=== PATIENT | male | born 2000 | race Asian ===

== ENCOUNTER 2020-10-04 13:14 | Emergency (ER) | payer SELFPAY ==
[2020-10-04 13:22] VITALS: BP 144/81; PULSE 81; RESP 16; TEMP 36.6; O2SAT 100
--- NOTE | 2020-10-04 13:24 | ED_ITS ---
HPI - Wound/Laceration General Chief Complaint: Wound/Laceration Stated Complaint: fall/injured hand Source: patient and RN notes reviewed Limitations: no limitations History of Present Illness HPI narrative: The patient, who is right-handed student, presents with wound check of hand injury. Patient states he slipped and fell in a garage where there was a razor blade on the ground. He complains of mild pain and swelling from a small, superficial avulsion of the left hypothenar eminence. Symptoms are mild, almost completely better with elevation or compression. He says he would like a check, as' he has no supplies at home'. Related Data Allergies Allergy/AdvReac Type Severity Reaction Status Date / Time No Known Allergies Allergy Unknown Verified 10/04/20 13:21 Review of Systems Review of Systems: Narrative: The patient has been informed that they may have pre-hypertension or Hypertension based on a BP reading in the department. I recommend that the patient call the primary care provider listed on their discharge instructions or a physician of their choice this week to arrange follow up for further evaluation of possible pre-hypertension or Hypertension General/Constitutional: No weight loss,fever Eyes: N0: Redness,discharge Ears/Nose/Throat: No: Epistaxis,ear discharge Respiratory: Denies: Hemoptysis Gastrointestinal: No Vomiting, Bleeding-rectal Skin: No Lumps, eruption Neurologic: No Focal Weakness,Sz Hematologic: Denies: Petechiae/Purpura Psychiatric: No: Suicida ideationl All Other Systems: Reviewed and Negative PMFSH Comments At time of signature, agree with nursing past medical, surgical, social and family history. There is no relevant family history pertinent to the presenting complaint Exam Narrative: Exam Narrative: General Appearance: Well appearing, , Conjunctiva clear Ears: External ear normal, Auditory canal normal Nose: Normal nose, Nares clear Mouth/Throat: Normal appearing, Supple Respiratory: Airway patent, No respiratory distress MS L Hand: Normal strength (mostly intact, unlimited flexion/extension , Tenderness (hypothenar with mild decreased ROM), no swelling , Other no snuffbox tenderness Skin: Warm, Dry, ~1x2 cm superficial, approximated avulsion at hypothenar Neurological: A&O x3, , Normal affect Course Vital Signs Vital signs: Vital Signs Temperature 97.9 F 10/04/20 13:22 Pulse Rate 81 10/04/20 13:22 Respiratory Rate 16 10/04/20 13:22 Blood Pressure 144/81 H 10/04/20 13:22 Pulse Oximetry 100 10/04/20 13:22 Temperature 97.9 F 10/04/20 13:22 Pulse Rate 81 10/04/20 13:22 Respiratory Rate 16 10/04/20 13:22 Blood Pressure 144/81 H 10/04/20 13:22 Pulse Oximetry 100 10/04/20 13:22 Discharge Plan Discharge Clinical Impression: Encounter for post-traumatic wound check, History of fall Patient Disposition: Home, Self-Care Condition: Stable Instructions: Antibiotic Form, Skin Avulsion (ED) Prescriptions: New mupirocin 2 % ointment 1 applic TOPICAL TID Qty: 30 RF: 0 cephalexin [Keflex] 500 mg capsule 500 mg PO Q12H Qty: 6 RF: 0 mupirocin 2 % ointment 1 applic TOPICAL TID Qty: 30 RF: 0 Follow-up/Referrals: PHYSICIAN,MANAGER BUSINESS PLANNING [Primary Care Provider] -
== END 2020-10-04 13:42 | disposition home or self-care (01) ==
PROVIDERS: Emergency Provider Emergency Medicine
DX: S61.402A Unspecified open wound of left hand, initial encounter (principal); W01.0XXA Fall on same level from slipping, tripping and stumbling without subsequent striking against object, initial encounter
CPT/HCPCS: 99203; G0463

== ENCOUNTER 2021-01-25 14:59 | Outpatient (CLI) | payer OTHER, SELFPAY | END 2021-01-25 15:00 | disposition home or self-care (01) | LOC: ANHCOVIDVC 14:59 | PROVIDERS: PCP Family Medicine | DX: Z23 Encounter for immunization (principal) | CPT/HCPCS: 0001A; 91300 ==

== ENCOUNTER 2021-02-15 15:00 | Outpatient (CLI) | payer OTHER, SELFPAY | END 2021-02-15 15:01 | disposition home or self-care (01) | LOC: ANHCOVIDVC 15:00 | PROVIDERS: PCP Family Medicine | DX: Z23 Encounter for immunization (principal) | CPT/HCPCS: 0002A; 91300 ==

== ENCOUNTER 2023-06-02 13:01 | Emergency (ER) | payer BC, SELFPAY ==
--- NOTE | 2023-06-02 13:05 | ED.EAR ---
HPI - Ear Problem General Chief complaint: Ear Stated complaint: EARACHE/CRACKLING NOISE Time Seen by Provider: 06/02/23 13:05 Source: patient Mode of arrival: ambulatory Limitations: no limitations History of Present Illness HPI Narrative: Tommy is a 23-year-old male patient presenting to the clinic today with complaints of earache and crackling noises in his left ear. He reports pain 3/10. No fever or chills. Symptoms have been going on for approximately 1 week. Related Data Allergies Allergy/AdvReac Type Severity Reaction Status Date / Time No Known Allergies Allergy Unknown Verified 10/04/20 13:21 Review of Systems Review of Systems: Pertinent positives per HPI. Patient denies any fever, chills, rash, headache, visual changes, dizziness, cough,sore throat, shortness of breath, chest pain, palpitations, nausea, vomiting, diarrhea, constipation, abdominal pain, or any urinary issues. PMFSH Comments At the time of my signature, I reviewed and agree with the nursing past medical, surgical, social, and family history. There is no relevant family history pertinent to the patient complaint. Exam Narrative: General: Well-developed, well nourished, in no apparent distress Head: Normocephalic, atraumatic Eyes: Pupils equally round and reactive to light bilaterally, EOM intact, sclera and conjunctive clear, no discharge, lids normal Ears: Right tMs intact and clear, left TM intact, mild bulging with fluid noted behind the TM, ear canals clear, no drainage, grossly hearing normal. Nose: Nares patent, clear discharge, no inflammation, no sinus tenderness. Mouth: Oropharynx without lesions or masses, good dentition, MMM. Neck: Supple, trachea midline, no enlargement of anterior or posterior cervical nodes, no thyroid masses or goiter palpable. Cardio: Regular rate and rhythm, s1 and s2 normal, no murmur appreciated. Resp: Clear to auscultation bilaterally anteriorly and posteriorly, no rhonchi, rales, wheezing or rubs Course Course Emergency Course: Portions of this record may have been created with voice recognition software. Level of Care: Express Care Visit Vital Signs Vital signs: Vital signs reviewed Medical Decision Making MDM Narrative Medical decision making narrative: At the time of visit patient is resting comfortably on the exam table. I suspect patient has serous otitis left ear. Will send in prescription for some prednisone and supportive measures were discussed with the patient he voiced understanding discharge instructions agrees to treatment plan. Differential Diagnosis Differential Diagnosis: Otitis media, otitis externa, eustachian tube dysfunction, upper respiratory infection, cerumen impaction, serous otitis, conductive hearing loss, sensorineural hearing loss Discharge Plan Discharge Clinical Impression: Acute serous otitis media Patient Disposition: Home, Self-Care Condition: Stable Instructions: Antibiotic Form, Fluid In The Ear (Serous Otitis Media) (ED) Additional Instructions: Take any prescribed medications only as directed-prednisone Tylenol/motrin as needed for pain May use heating pad to alleviate pain If you get recurrent ear infections it may be warranted to follow up with ENT. Follow up with your PCP in 3-5 days if symptoms persist. Prescriptions: New prednisone 20 mg tablet 40 mg PO DAILY 5 Days Qty: 10 0RF Follow-up/Referrals: UNKNOWN,DOCTOR [Non-Staff] - Time of Disposition: 13:13 Quality NIHSS Nursing Documentation ED NIHSS nursing documentation: reviewed/agree
[2023-06-02 13:11] VITALS: BP 141/81; PULSE 74; RESP 20; TEMP 36.6; O2SAT 100
== END 2023-06-02 13:16 | disposition home or self-care (01) ==
PROVIDERS: Emergency Provider Nurse Practitioner Family
DX: H65.02 Acute serous otitis media, left ear (principal)
CPT/HCPCS: 99213; G0463